=== PATIENT | male | born 1995 | race Caucasian/White ===

== ENCOUNTER → 2018-12-26 | Outpatient (CLI) | payer MEDICAID ==
--- NOTE | 2018-12-26 12:22 | Diagnostic Imaging Report ---
INDICATION: Injury to the right shoulder lifting weights. TIME OF EXAMINATION: 12:06 PM. TECHNIQUE: Two views of the right shoulder were obtained. FINDINGS: The glenohumeral and acromioclavicular alignment is normal. The acromiohumeral space is normal. No fracture or dislocation is seen. IMPRESSION: No acute bony abnormality is detected. Dictated by: Dictated on workstation # [id number]
== END ==
LOC: RAD FS 11:56
PROVIDERS: ATTEND Nurse Practitioner
DX: S49.91XA Unspecified injury of right shoulder and upper arm, initial encounter (principal); X50.0XXA Overexertion from strenuous movement or load, initial encounter
CPT/HCPCS: 73030

== ENCOUNTER → 2019-01-31 | Outpatient (CLI) | payer MEDICAID ==
--- NOTE | 2019-01-31 10:53 | Diagnostic Imaging Report ---
PROCEDURE: MRI right joint upper extremity without contrast. TECHNIQUE: Multiplanar, multisequence non contrast-enhanced MRI of the right upper extremity was accomplished. INDICATION: Injury to the right shoulder while weight lifting. COMPARISON: Radiograph from 12/26/2018 FINDINGS: No acute fracture or dislocation is seen in the right shoulder. Alignment is normal. No joint effusion is seen. No tear is seen in the right rotator cuff. The long head of the biceps tendon appears normal in course and signal. The glenoid labrum is suboptimally evaluated in the absence of intra-articular contrast but no discrete tear or paralabral cyst is seen. The acromion has a curved undersurface without hooking. The coracoclavicular and coracoacromial ligaments appear intact. There is no muscular atrophy. No soft tissue masses or fluid collections are seen. IMPRESSION: 1. No acute abnormality is seen in the right shoulder. Dictated by: Dictated on workstation # [id number]
== END ==
LOC: RAD 09:31
PROVIDERS: ATTEND Nurse Practitioner
DX: S49.92XA Unspecified injury of left shoulder and upper arm, initial encounter (principal); X50.0XXA Overexertion from strenuous movement or load, initial encounter
CPT/HCPCS: 73221

== ENCOUNTER → 2021-07-18 | Outpatient (CLI) | payer MEDICAID ==
--- NOTE | 2021-07-18 10:58 | Diagnostic Imaging Report ---
PROCEDURE: MRI lumbar spine. TECHNIQUE: Multiplanar, multisequence MRI of the lumbar spine was performed without contrast. INDICATION: Low back pain. COMPARISON: No prior studies are available for comparison. FINDINGS: Curvature and alignment is within normal limits. Vertebral body heights and marrow signal are unremarkable. No compression fracture or geographic marrow lesion is seen. There is some loss of height and signal intensity to the L5-S1 intervertebral disc compatible with degenerative disc disease. The conus is unremarkable at the T12-L1 level. T12-L1: Central canal and neural foramina are widely patent. L1-L2: Central canal and neural foramina are widely patent. L2-L3: Central canal and neural foramina are widely patent. L3-L4: Minimal annular bulging is noted flattening the ventral thecal sac. Central canal remains widely patent. Neural foramina are patent. L4-L5: There is some flattening of the ventral thecal sac due to annular bulging, but central canal is patent. There is narrowing of bilateral lateral recesses. No significant neural foraminal narrowing is seen. L5-S1: Annular bulging is noted. There is some linear T2 signal in the midline posterior annulus consistent with an annular tear. No focal disc protrusion is seen. Central canal is patent. There is some narrowing of the lateral recesses bilaterally. No significant neural foraminal narrowing is detected. Paraspinous tissues are unremarkable. IMPRESSION: Lower lumbar annular bulging with mild lateral recess narrowing described level by level above. No central canal stenosis or neural foraminal stenosis is detected. Dictated by: Dictated on workstation # [id number]
== END ==
LOC: RAD 08:05
PROVIDERS: ATTEND Nurse Practitioner Family
DX: M51.26 Other intervertebral disc displacement, lumbar region (principal); M51.27 Other intervertebral disc displacement, lumbosacral region; M48.07 Spinal stenosis, lumbosacral region
CPT/HCPCS: 72148

== ENCOUNTER 2021-12-05 11:24 | Emergency (ER) | payer MEDICAID ==
[~2021-12-05] VITALS: Ht 185 cm; Wt 82.0 kg
[2021-12-05 11:37] VITALS: BP 108/76
--- NOTE | 2021-12-05 12:46 | Diagnostic Imaging Report ---
HISTORY: Crush injury of the left wrist with left wrist pain TECHNIQUE: 3 views of the left wrist COMPARISON: None FINDINGS: No acute fracture or dislocation is seen in the left wrist. Alignment is normal and joint spaces are preserved. No cortical erosions are seen. IMPRESSION: 1. No acute osseous abnormality is seen in the left wrist. Dictated by: Dictated on workstation # [id number]
--- NOTE | 2021-12-05 12:46 | Diagnostic Imaging Report ---
HISTORY: Crush injury of the left hand, with left hand pain. TECHNIQUE: Three views of the left hand. COMPARISON: None. FINDINGS: No acute fracture or dislocation is seen in the left hand. Alignment appears normal, and joint spaces are preserved. No cortical erosions are seen. IMPRESSION: 1. No acute osseous abnormality is seen in the left hand. Dictated by: Dictated on workstation # [id number]
--- NOTE | 2021-12-05 12:52 | ED Upper Extremity ---
General Chief Complaint: Upper Extremity Stated Complaint: LT HAND INJ Nursing Triage Note: Patient has ambulated to ER 2 with cc of left hand pain. He reports the he dropped a rail road tie on his hand on Sunday. He went to urgent care on Sunday and was given a splint to wear but he is not liking the splint and not wearing it. He has taken ibuprofen for his pain. He reports that he continues to have pain in hand and came to ER for evaluation. Source: patient Exam Limitations: no limitations History of Present Illness Date Seen by Provider: Dec 05, 2021 Time Seen by Provider: 11:32 Initial Comments This 26-year-old gentleman presents to the emergency room with pain in the left hand and wrist since December 03 when it was smashed with a railroad tie while working on a project. He presented to an urgent care and a splint was placed. No x-rays were obtained. He reports pain has not improved, so he would like it reevaluated today. No other injuries occurred. Allergies and Home Medications Allergies Coded Allergies: No Known Drug Allergies (Unverified , 12/05/21) Patient Home Medication List Home Medication List Reviewed: Yes Review of Systems Constitutional: no symptoms reported EENTM: no symptoms reported Respiratory: no symptoms reported Cardiovascular: no symptoms reported Gastrointestinal: no symptoms reported Genitourinary: no symptoms reported Musculoskeletal: see HPI Skin: no symptoms reported Psychiatric/Neurological: No Symptoms Reported Past Whbfetm-Kxrtud-Ijdsqf Hx Patient Social History Tobacco Use?: No Use of E-Cig and/or Vaping dev: No Alcohol Use?: No Past Medical History Surgeries: No Respiratory: No Cardiac: No Neurological: No Genitourinary: No Gastrointestinal: No Musculoskeletal: No Endocrine: No HEENT: No Cancer: No Psychosocial: No Physical Exam Vital Signs Vital Signs - First Documented 12/05/21 11:37 Temp 36.5 Pulse 83 Resp 16 B/P (MAP) 108/76 (87) Pulse Ox 97 O2 Delivery Room Air Capillary Refill : Height, Weight, BMI Height: '" Weight: lbs. oz. kg; 23.00 BMI Method: General Appearance: WD/WN, no apparent distress HEENT: normal ENT inspection Cardiovascular: regular rate, rhythm, no edema, no murmur Respiratory: lungs clear, normal breath sounds, no respiratory distress Elbow/Forearm: normal inspection, non-tender, no evidence of injury, normal ROM, Left Wrist: Yes normal inspection, Yes normal ROM (Mild pain in the wrist with range of motion), Yes bone tenderness (Mild tenderness in the wrist with palpation) Hand: Left (Decreased range of motion of the third fourth and fifth fingers. Tenderness on the distal hand, particularly over the third fourth and fifth metacarpals. Pain with range of motion and palpation. Sensation and capillary refill intact.) Neurologic/Tendon: normal sensation, normal motor functions, responds to pain Neurologic/Psychiatric: no motor/sensory deficits, alert, normal mood/affect, oriented x 3 Skin: warm/dry Progress/Results/Core Measures Results/Orders My Orders Orders - MARVIN DAVIES MD Hand 3 View Left (12/05/21 11:35) Wrist 3 View Left (12/05/21 11:35) Vital Signs/I&O 12/05/21 11:37 Temp 36.5 Pulse 83 Resp 16 B/P (MAP) 108/76 (87) Pulse Ox 97 O2 Delivery Room Air Blood Pressure Mean: 87 Progress Progress Note : Progress Note X-rays revealed no fractures or dislocations. Patient does not like the "stick splint" that he received from urgent care. He would like to try one of our splints. See discharge instructions for further discussion. Diagnostic Imaging Diagonstic Imaging: Xray Plain Films/CT/US/NM/MRI: hand (And wrist) Comments X-rays of the left hand and wrist reviewed by me and reports reviewed. See reports below: NAME: SESAR HOLT [facility] REC#: [id number] PT STATUS: REG ER : 1995 PHYSICIAN: MARVIN DAVIES MD ADMIT DATE: 12/05/21/ER FS Draft Date of Exam:12/05/21 HAND 3 VIEW LEFT HISTORY: Crush injury of the left hand, with left hand pain. TECHNIQUE: Three views of the left hand. COMPARISON: None. FINDINGS: No acute fracture or dislocation is seen in the left hand. Alignment appears normal, and joint spaces are preserved. No cortical erosions are seen. IMPRESSION: 1. No acute osseous abnormality is seen in the left hand. Dictated on workstation # [id number] Dict: 12/05/21 1240 Trans: 12/05/21 1245 [id number] Interpreted by: NERY CARMICHAEL MD NAME: SESAR HOLT MED REC#: [id number] PT STATUS: REG ER : 1995 PHYSICIAN: MARVIN DAVIES MD ADMIT DATE: 12/05/21/ER FS Draft Date of Exam:12/05/21 WRIST 3 VIEW LEFT HISTORY: Crush injury of the left wrist with left wrist pain TECHNIQUE: 3 views of the left wrist COMPARISON: None FINDINGS: No acute fracture or dislocation is seen in the left wrist. Alignment is normal and joint spaces are preserved. No cortical erosions are seen. IMPRESSION: 1. No acute osseous abnormality is seen in the left wrist. Dictated on workstation # [id number] Dict: 12/05/21 1239 Trans: 12/05/21 1245 [id number] Interpreted by: NERY CARMICHAEL MD Departure Impression Primary Impression: Contusion of left hand Qualified Codes: S60.222A - Contusion of left hand, initial encounter Additional Impression: Contusion of left wrist Qualified Codes: S60.212A - Contusion of left wrist, initial encounter Disposition: 01 HOME, SELF-CARE Condition: Stable Departure-Patient Inst. Decision time for Depature: 12:56 Referrals: NO,LOCAL PHYSICIAN (PCP/Family) Primary Care Physician Patient Instructions: Contusion (DC) Add. Discharge Instructions: You may take ibuprofen up to 600 mg every 6 hours as needed for pain. Add Tylenol (acetaminophen) up to 1000 mg every 6 hours as needed for additional pain relief. You may additionally ice in 20-minute intervals and elevate to help reduce pain and swelling. Use the splint as needed for comfort. Avoid prolonged periods of time without any range of motion as this may make your hand stiffer. Gradually increase level of activity as pain allows. Follow-up with your primary care provider as needed, or return to the ER if you have worsening symptoms. All discharge instructions reviewed with patient and/or family. Voiced understanding. MARVIN DAVIES MD Dec 05, 2021 12:52
== END 2021-12-05 13:05 | disposition home or self-care (01) ==
LOC: EDUNIT# 11:24 → ER FS 11:26
DX: S60.212A Contusion of left wrist, initial encounter (principal); Z28.310 Unvaccinated for COVID-19; W23.1XXA Caught, crushed, jammed, or pinched between stationary objects, initial encounter; Y92.85 Railroad track as the place of occurrence of the external cause; Y99.0 Civilian activity done for income or pay
CPT/HCPCS: 73110; 73130

== ENCOUNTER 2022-02-10 18:41 | Emergency (ER) | payer MEDICAID ==
[~2022-02-10] VITALS: Ht 185.4 cm; Wt 84.0 kg
[2022-02-10] MEDS ORDERED: TETANUS,DIPTH,PERTUSS P/F (BOOSTRIX) 0.5 ML VIAL IM ONE (19:00)
--- NOTE | 2022-02-10 19:00 | ED Lower Extremity ---
General Chief Complaint: Laceration Stated Complaint: R FOOT LAC Source: patient, family Exam Limitations: no limitations History of Present Illness Date Seen by Provider: Feb 10, 2022 Time Seen by Provider: 18:43 Initial Comments 26-year-old male with no pertinent past medical history coming in after he was walking barefoot and stepped on a piece of glass cutting the right lower part of his foot. Came here shortly afterwards. His last tetanus he believes was somewhere around 10 years ago, but is unsure. Having constant, mild, sharp pain to his right foot which is worse when walking on it, and better with rest. Otherwise denying any other acute complaints. Allergies and Home Medications Allergies Coded Allergies: No Known Drug Allergies (Unverified , 12/05/21) Patient Home Medication List Home Medication List Reviewed: Yes Review of Systems Constitutional: No fever EENTM: no symptoms reported Respiratory: no symptoms reported Cardiovascular: no symptoms reported Gastrointestinal: no symptoms reported Genitourinary: no symptoms reported Musculoskeletal: no symptoms reported Skin: see HPI Psychiatric/Neurological: No Symptoms Reported All Other Systems Reviewed Negative Unless Noted: Yes Past Faeltoo-Yyqhki-Spcidk Hx Patient Social History Tobacco Use?: No Past Medical History Surgeries: No Respiratory: No Cardiac: No Neurological: No Genitourinary: No Gastrointestinal: No Musculoskeletal: No Endocrine: No HEENT: No Cancer: No Psychosocial: No Physical Exam Vital Signs Capillary Refill : Height, Weight, BMI Height: '" Weight: lbs. oz. kg; 23.00 BMI Method: General Appearance: WD/WN, no apparent distress HEENT: PERRL/EOMI, normal ENT inspection, pharynx normal Neck: non-tender, full range of motion, supple, normal inspection Cardiovascular: regular rate, rhythm, no edema, no murmur Respiratory: chest non-tender, lungs clear, normal breath sounds, no respiratory distress, no accessory muscle use Gastrointestinal: normal bowel sounds, non tender, soft; No guarding Back: normal inspection Hips: bilateral hip normal inspection Legs: bilateral leg normal inspection Knees: bilateral knee normal inspection Ankles: bilateral ankle normal inspection Feet: right foot other (Small, superficial, and half centimeter laceration that is barely through the callus on his foot, more consistent with a large abrasion than a true laceration, hemostatic, no foreign body) Neurologic/Tendon: normal sensation, normal motor functions, normal tendon functions Neurologic/Psychiatric: no motor/sensory deficits, alert, normal mood/affect Skin: normal color, warm/dry Lymphatic: no adenopathy Progress/Results/Core Measures Progress Progress Note : Progress Note 26-year-old male presenting after stepping on glass. ABCs were intact and vitals were stable on presentation. Physical exam were consistent with an abras ion to the right lower foot. Tetanus updated and the wound was cleaned. He was then discharged home in stable condition with strict return precautions Departure Impression Primary Impression: Foot abrasion Qualified Codes: S90.811A - Abrasion, right foot, initial encounter Disposition: HOME, SELF-CARE Condition: Stable Departure-Patient Inst. Decision time for Depature: 19:00 Referrals: MANISH LYLES APRN (PCP/Family) Primary Care Physician Patient Instructions: Abrasions ED Add. Discharge Instructions: Fortunately it is not deep enough to need stitches. Go home and soak it and get it very clean tonight. Afterwards get it clean every day, wear clean socks daily, wear shoes daily at least for the next week. Take ibuprofen or Tylenol as needed for pain. It might have some small amount of bleeding or oozing which should stop by tomorrow. Work/School Note: Family Work Note, Patient Received Medical Care In the Emergency Department On: Feb 10, 2022 Patient Will Be Able to Return to Work/School On: Feb 11, 2022 Work Release Form Date Seen in the Emergency Department: Feb 10, 2022 Return to Work: Feb 11, 2022 Restrictions: No Restrictions CARA MITCHELL MD Feb 10, 2022 19:00
[2022-02-10 19:06] VITALS: BP 126/73
== END 2022-02-10 19:06 | disposition home or self-care (01) ==
LOC: EDUNIT# 18:41 → ER FS 18:42
DX: S90.811A Abrasion, right foot, initial encounter (principal); Z28.310 Unvaccinated for COVID-19; Z23 Encounter for immunization; W25.XXXA Contact with sharp glass, initial encounter; Y93.01 Activity, walking, marching and hiking
CPT/HCPCS: 90715; 99284

== ENCOUNTER → 2022-04-19 | Outpatient (CLI) | payer MEDICAID ==
[~2022-04-19] MED LIST: HOLD METFORMIN - RECEIVED CONTRAST 20 ML VIAL IV SCH; IOHEXOL 350 MG/ML 100 ML (OMNIPAQUE 350) VIAL IV ONE; NS 100 ML (IVPB) BAG IV ONE
--- NOTE | 2022-04-19 14:54 | Diagnostic Imaging Report ---
PROCEDURE: CT angiography of the head and CT angiography of the neck with and without contrast. TECHNIQUE: Contiguous noncontrast images were obtained from the skull base through the vertex. After intravenous contrast administration, helical CT angiography of the neck was performed. Source data was reformatted into 3D MIP projections. Delayed post contrast acquisition was also obtained. Auto Exposure Controls were utilized during the CT exam to meet ALARA standards for radiation dose reduction. INDICATION: Family history of brain aneurysms. Patient also complains of chronic migraine headaches. No prior studies are available for comparison. FINDINGS: Precontrast images through the brain demonstrate the ventricles and sulci to be within normal limits. No sulcal effacement or midline shift is identified. No acute intra-axial or extra-axial hemorrhage is detected. Cisterns are patent. Visualized paranasal sinuses are clear. Delayed postcontrast imaging through the brain is without evidence of an abnormal enhancing lesion. CT ANGIOGRAM NECK: There is a three-vessel branching pattern to the aortic arch. The right and left common carotid arteries are widely patent. The carotid bifurcations are unremarkable. The right and left internal carotid arteries are unremarkable. The vertebral arteries appear to be codominant and widely patent. Right and left PICA appear widely patent. CT ANGIOGRAM HEAD: The basilar artery is widely patent. The right and left posterior cerebral and superior cerebellar arteries are widely patent. No basilar tip aneurysm is detected. Carotid siphons are unremarkable. Right and left M1 and M2 middle cerebral artery branches appear widely patent. No definite aneurysms are seen. The right and left anterior cerebral arteries appear to be widely patent. No anterior communicating artery aneurysm is detected. IMPRESSION: Unremarkable CT angiogram of the head and neck. No thromboemboli or large vessel occlusion is seen. No intracranial aneurysm is detected. Dictated by: Dictated on workstation # [id number]
== END ==
LOC: RAD 12:51
PROVIDERS: ATTEND Nurse Practitioner
DX: R90.89 Other abnormal findings on diagnostic imaging of central nervous system (principal); G43.709 Chronic migraine without aura, not intractable, without status migrainosus; Z82.0 Family history of epilepsy and other diseases of the nervous system
CPT/HCPCS: 70496; 70498

== ENCOUNTER 2022-08-02 18:52 | Emergency (ER) | payer MEDICAID ==
[~2022-08-02] VITALS: Ht 182 cm; Wt 74.5 kg
[2022-08-02 18:58] VITALS: BP 100/68
[2022-08-02] MEDS ORDERED: CYCLOBENZAPRINE 10 MG (FLEXERIL) TAB PO STA (19:03)
[2022-08-02] MEDS ORDERED: CYCL10TA25 PO (19:07)
[2022-08-02] MEDS ORDERED: IBUP-1780 PO (19:07)
--- NOTE | 2022-08-02 19:08 | ED Back Pain ---
General Chief Complaint: Back Problems Stated Complaint: BACK PAIN Nursing Triage Note: Patient complains of lower back pain for the last week - he reports that he picked up a metal pipe and since that time he has had pain. He took ibuprofen 2 days ago for his pain. Source of Information: Patient, Family Exam Limitations: No Limitations History of Present Illness Date Seen by Provider: August 02, 2022 Time Seen by Provider: 18:53 Initial Comments 27-year-old male with no pertinent past medical history coming in due to low back pain. He was picking up some pipe about a week ago, and felt a strain in his right lower back. Its been hurting ever since. He last took ibuprofen a couple days ago which helped. Denies any weakness, numbness, bowel or bladder issue, fever, or any other concerns. Allergies and Home Medications Allergies Coded Allergies: No Known Drug Allergies (Unverified , 12/05/21) Patient Home Medication List Home Medication List Reviewed: Yes Review of Systems Constitutional: No fever EENTM: no symptoms reported Respiratory: no symptoms reported Cardiovascular: no symptoms reported Gastrointestinal: no symptoms reported Genitourinary: no symptoms reported Musculoskeletal: see HPI Psychiatric/Neurological: No Symptoms Reported Past Bqnwnpb-Swfpae-Lihzue Hx Patient Social History Tobacco Use?: No Use of E-Cig and/or Vaping dev: No Substance use?: No Alcohol Use?: No Pt feels they are or have been: Unable to obtain Immunizations Up To Date First/Initial COVID19 Vaccinat: unvaccinated Second COVID19 Vaccination Jose Luis: unvaccinated Third COVID19 Vaccination Date: unvaccinated Past Medical History Surgery/Hospitalization HX: Disabled: Asperger's (functional autism) Surgeries: No Respiratory: No Cardiac: No Neurological: No Genitourinary: No Gastrointestinal: No Musculoskeletal: No Endocrine: No HEENT: No Cancer: No Psychosocial: No Physical Exam Vital Signs Vital Signs - First Documented 08/02/22 18:58 Temp 37.0 Pulse 88 Resp 16 B/P (MAP) 100/68 (79) O2 Delivery Room Air Capillary Refill : Height, Weight, BMI Height: '" Weight: lbs. oz. kg; 22.00 BMI Method: General Appearance: No Apparent Distress, WD/WN HEENT: PERRL/EOMI, Normal ENT Inspection, Pharynx Normal Neck: Full Range of Motion, Normal Inspection, Non Tender, Supple Cardiovascular: Regular Rate, Rhythm, No Edema, Normal Peripheral Pulses Respiratory: Chest Non Tender, Lungs Clear, Normal Breath Sounds, No Accessory Muscle Use, No Respiratory Distress Gastrointestinal: Normal Bowel Sounds, Non Tender, Soft; No Distended, No Guarding Back: Normal Inspection, No CVA Tenderness, No Vertebral Tenderness, Other (P araspinal tenderness on the right lower back) Extremity: Normal Capillary Refill, Normal Inspection, Normal Range of Motion, Non Tender Neurologic/Psychiatric: Alert, No Motor/Sensory Deficits, Normal Mood/Affect Skin: Normal Color, Warm/Dry Progress/Results/Core Measures Results/Orders My Orders Orders - CARA MITCHELL MD Acetaminophen Tablet (Tylenol Tablet) (08/02/22 19:15) Ibuprofen Tablet (Motrin Tablet) (08/02/22 19:15) Cyclobenzaprine Tablet (Flexeril Tablet) (08/02/22 19:03) Vital Signs/I&O 08/02/22 18:58 Temp 37.0 Pulse 88 Resp 16 B/P (MAP) 100/68 (79) O2 Delivery Room Air Blood Pressure Mean: 79 Progress Progress Note : Progress Note 27-year-old male with above history coming in due to low back pain after picking something up a week ago. ABCs were intact and vitals were stable on presentation. The patient walked in without any difficulty and did not appear to be in any pain. He has no red flags on exam. Given the lack of trauma, imaging considered but not ordered. He was given oral medications here for pain control and will be sent a prescription home. I believe he stable for discharge with outpatient follow-up. He was sent home with strict return precautions Departure Impression Primary Impression: Low back strain Qualified Codes: S39.012A - Strain of muscle, fascia and tendon of lower back, initial encounter Disposition: 01 HOME, SELF-CARE Condition: Stable Departure-Patient Inst. Decision time for Depature: 19:12 Referrals: MANISH LYLES APRN (PCP/Family) Primary Care Physician Patient Instructions: Low Back Pain ED Add. Discharge Instructions: We are not seeing any evidence of significant injury from picking up the pipe. Please follow-up with a spine doctor of your choosing if you are not improving within 2 weeks. Prescription strength ibuprofen as well as a muscle relaxer were sent to your pharmacy. You can also try a heating pad. Do not drive or operate heavy machinery if you take a muscle relaxer. Scripts Cyclobenzaprine HCl (Cyclobenzaprine HCl) 10 Mg Tablet 10 MG PO Q8H PRN for SPASMS for 5 Days, #15 TAB 0 Refills Prov: CARA MITCHELL MD 08/02/22 Ibuprofen (Ibuprofen) 800 Mg Tablet 800 MG PO Q8H PRN for PAIN for 7 Days, #21 TAB 0 Refills Prov: CARA MITCHELL MD 08/02/22 Work/School Note: Family Work Note, Patient Received Medical Care In the Emergency Department On: August 02, 2022 Patient Will Be Able to Return to Work/School On: August 03, 2022 Work Release Form Date Seen in the Emergency Department: August 02, 2022 Return to Work: August 03, 2022 Restrictions: No Restrictions CARA MITCHELL MD August 02, 2022 19:08
[2022-08-02] MEDS ORDERED: ACETAMINOPHEN 500 MG TAB (TYLENOL) PO ONE (19:15)
[2022-08-02] MEDS ORDERED: IBUPROFEN 600 MG (MOTRIN) TAB PO ONE (19:15)
== END 2022-08-02 19:17 | disposition home or self-care (01) ==
LOC: EDUNIT# 18:52 → ER FS 18:53
DX: S39.012A Strain of muscle, fascia and tendon of lower back, initial encounter (principal); Z28.310 Unvaccinated for COVID-19; X50.1XXA Overexertion from prolonged static or awkward postures, initial encounter
CPT/HCPCS: 99283

== ENCOUNTER 2022-09-11 11:25 | Emergency (ER) | payer MEDICAID ==
[~2022-09-11] VITALS: Ht 185.5 cm; Wt 83.9 kg
[~2022-09-11 11:25] MED LIST changes: +CYCL10TA25 PO; -HOLD METFORMIN - RECEIVED CONTRAST 20 ML VIAL IV SCH; +IBUP-1780 PO; -IOHEXOL 350 MG/ML 100 ML (OMNIPAQUE 350) VIAL IV ONE; -NS 100 ML (IVPB) BAG IV ONE
[2022-09-11] MEDS ORDERED: IBUPROFEN 800 MG (MOTRIN) TAB PO ONE (12:15)
--- NOTE | 2022-09-11 12:37 | Diagnostic Imaging Report ---
FOOT 3 VIEW LEFT INDICATION: Left foot pain COMPARISON: None available. TECHNIQUE: Three non-weightbearing views of foot were obtained. FINDINGS: No fracture or traumatic malalignment. No evidence of metatarsal stress fracture. There are a few punctate hyperdensities on the skin in the 1st metatarsal webspace. IMPRESSION: 1. No acute fracture or traumatic malalignment. Dictated by: Dictated on workstation # [id number]
[2022-09-11] MEDS ORDERED: IBUP-1780 PO (12:49)
--- NOTE | 2022-09-11 12:49 | ED Lower Extremity ---
General Chief Complaint: Lower Extremity Stated Complaint: LT FOOT PAIN Nursing Triage Note: PT AMBULATE TO ROOM FS02 WITHOUT DIFFICULTY WITH C/O LEFT FOOT PAIN STARTING YESTERDAY. PT REPORTS HE A WAS WALKING HIS DOG AND HIS LEFT FOOT STARTED HURTING. PT REPORTS HAVING A BLISTER BETWEEN GREAT AND SECOND TOE ON LEFT FOOT. PT REPORTS RIGHT HIP PAIN X2 WEEKS THAT HE "WOULD LIKE THE DOCTOR TO LOOK AT, YA KNOW, SINCE I'M HERE." Source: patient, RN notes reviewed History of Present Illness Date Seen by Provider: Sep 11, 2022 Time Seen by Provider: 11:56 Initial Comments 27-year-old male patient with history of autism, ADHD, asparagus on disability presented POV with complaining of left foot pain. Patient stated he was walking his dog yesterday and twisted his left foot and complaining of pain over 10. Patient denies other injuries and stated he did not take any pain medication. Patient also stated he had a blister between first and second toe that was popped off and is concerned for infection. Patient also complaining of right hip pain intermittently for 2 weeks without injury. Patient is a poor historian. Allergies and Home Medications Allergies Coded Allergies: No Known Drug Allergies (Unverified , 12/05/21) Patient Home Medication List Home Medication List Reviewed: Yes Cyclobenzaprine HCl (Cyclobenzaprine HCl) 10 Mg Tablet, 10 MG PO Q8H PRN for SPASMS Prescribed by: CARA MITCHELL on 08/02/221906 Ibuprofen (Ibuprofen) 800 Mg Tablet, 800 MG PO Q8H PRN for PAIN Prescribed by: CARA MITCHELL on 08/02/221906 Ibuprofen (Ibuprofen) 800 Mg Tablet, 800 MG PO Q8H PRN for PAIN Prescribed by: Valentina fournier on 09/11/22 1249 Review of Systems Constitutional: no symptoms reported EENTM: no symptoms reported Respiratory: no symptoms reported Cardiovascular: no symptoms reported Gastrointestinal: no symptoms reported Genitourinary: no symptoms reported Musculoskeletal: see HPI Skin: see HPI Psychiatric/Neurological: See HPI All Other Systems Reviewed Negative Unless Noted: Yes Past Kacgrdm-Wgttif-Jvknqw Hx Patient Social History Tobacco Use?: No Smoking Status: Never a Smoker Smokeless Tobacco Frequency: Never a User Use of E-Cig and/or Vaping dev: No Use of E-Cig and/or Vaping Tee: Never a User Substance use?: No Alcohol Use?: Yes Alcohol Frequency: Rarely Immunizations Up To Date First/Initial COVID19 Vaccinat: unvaccinated Second COVID19 Vaccination Jose Luis: unvaccinated Third COVID19 Vaccination Date: unvaccinated Past Medical History Surgery/Hospitalization HX: Disabled: Asperger's (functional autism) Surgeries: No Respiratory: No Cardiac: No Neurological: No Genitourinary: No Gastrointestinal: No Musculoskeletal: No Endocrine: No HEENT: No Cancer: No Psychosocial: No Physical Exam Vital Signs Vital Signs - First Documented 09/11/22 11:30 Temp 36.2 Pulse 70 Resp 18 B/P (MAP) 95/69 (78) O2 Delivery Room Air Capillary Refill : Less Than 3 Seconds Height, Weight, BMI Height: '" Weight: lbs. oz. kg; 24.00 BMI Method: General Appearance: no apparent distress, other (Unkempt) HEENT: PERRL/EOMI Neck: non-tender Cardiovascular: regular rate, rhythm, no edema Respiratory: lungs clear, normal breath sounds, no respiratory distress Back: normal inspection Hips: bilateral hip non-tender, bilateral hip normal inspection, bilateral hip normal range of motion Legs: bilateral leg non-tender, bilateral leg normal inspection, bilateral leg normal range of motion Knees: bilateral knee non-tender, bilateral knee normal inspection Ankles: bilateral ankle non-tender, bilateral ankle normal inspection, bilateral ankle normal range of motion Feet: bilateral foot non-tender, bilateral foot normal inspection, bilateral foot normal range of motion Neurologic/Tendon: normal sensation, normal motor functions, normal tendon functions Skin: normal color, warm/dry, other (With dirty feet with foul-smelling, no blisters between toes was found.) Progress/Results/Core Measures Results/Orders My Orders Orders - VALENTINA FOURNIER MD Ibuprofen Tablet (Motrin Tablet) (09/11/22 12:15) Foot 3 View Left (09/11/22 12:03) Medications Given in ED Current Medications Medications Dose Ordered Sig/Otilia Route Start Time Stop Time Status Last Admin Dose Admin Ibuprofen 800 mg ONCE ONCE PO 09/11/22 12:15 09/11/22 12:16 DC 09/11/22 12:11 800 MG Vital Signs/I&O 09/11/22 11:30 Temp 36.2 Pulse 70 Resp 18 B/P (MAP) 95/69 (78) O2 Delivery Room Air Blood Pressure Mean: 78 Progress Progress Note : Progress Note Patient with several psychiatric problems complaining of left foot pain since yesterday after injury. Patient had very foul-smelling and dirty foot without signs of injury with negative x-ray. Patient also concern for right hip pain without signs of injury or deformity with unremarkable physical exam of hip. Patient treated with ibuprofen in ER and prescription for ibuprofen was given and advised to clean his foot and take prescribed ibuprofen and follow-up with primary care physician for chronic pain of right hip. Diagnostic Imaging Diagonstic Imaging: Xray Plain Films/CT/US/NM/MRI: other (Left foot) CT Results/Progress Notes X-ray of left foot interpreted by me and did not show acute finding. X-ray of left foot interpreted by radiologist and reviewed by me and did not show acute finding: [facility], [place] NAME: SESAR HOLT MED REC#: [id number] PT STATUS: REG ER : 1995 PHYSICIAN: VALENTINA FOURNIER MD ADMIT DATE: 09/11/22/ER FS Signed Date of Exam:09/11/22 FOOT 3 VIEW LEFT FOOT 3 VIEW LEFT INDICATION: Left foot pain COMPARISON: None available. TECHNIQUE: Three non-weightbearing views of foot were obtained. FINDINGS: No fracture or traumatic malalignment. No evidence of metatarsal stress fracture. There are a few punctate hyperdensities on the skin in the 1st metatarsal webspace. IMPRESSION: 1. No acute fracture or traumatic malalignment. Dictated by: Dictated on workstation # [id number] Dict: 09/11/22 1235 Trans: 09/11/22 1236 [facility] [id number] Interpreted by: JOSE ELIAS SMITH MD Electronically signed by: JOSE ELIAS SMITH MD 09/11/22 1236 Departure Impression Primary Impression: Injury of left foot Qualified Codes: S99.922A - Unspecified injury of left foot, initial encounter Disposition: 01 HOME, SELF-CARE Condition: Stable Departure-Patient Inst. Decision time for Depature: 12:47 Referrals: MANISH LYLES APRN (PCP) Primary Care Physician [facility] (Family) Primary Care Physician Patient Instructions: Contusion (DC) Add. Discharge Instructions: Keep your foot clean Apply ice on your foot Follow-up with your primary care physician for right hip pain Return to ER as needed All discharge instructions reviewed with patient and/or family. Voiced understanding. Scripts Ibuprofen (Ibuprofen) 800 Mg Tablet 800 MG PO Q8H PRN for PAIN, #30 TAB 0 Refills Prov: VALENTINA FOURNIER MD 09/11/22 VALENTINA FOURNIER MD Sep 11, 2022 12:49
[2022-09-11 12:52] VITALS: BP 124/72
== END 2022-09-11 12:52 | disposition home or self-care (01) ==
LOC: EDUNIT# 11:25 → ER FS 11:27
DX: S99.922A Unspecified injury of left foot, initial encounter (principal); M25.551 Pain in right hip; Z28.310 Unvaccinated for COVID-19; X50.1XXA Overexertion from prolonged static or awkward postures, initial encounter; Y93.K1 Activity, walking an animal
CPT/HCPCS: 73630; 99281

== ENCOUNTER 2022-10-02 16:58 | Emergency (ER) | payer MEDICAID ==
[2022-10-02] MEDS ORDERED: CEPH500C PO (17:38)
--- NOTE | 2022-10-02 17:38 | ED Lower Extremity ---
General Chief Complaint: Laceration Stated Complaint: R FOOT LAC Source: patient, family History of Present Illness Date Seen by Provider: Oct 02, 2022 Time Seen by Provider: 17:21 Initial Comments 27-year-old male with a history of autism and asperger's syndrome presents with complaints of pain and injury to his right foot. He states that on Sunday he medina d slipped on some rocks and caught his heel. He had a piece of tissue that was torn off. He also hit his foot on a umbrella stand. He denies any fever or chills and has had no purulent drainage from the wound. Onset: other (Sunday, September 29) Pain/Injury Location: right heel Method of Injury: other (Slipped while standing on some rocks) Modifying Factors: Worse With Movement Allergies and Home Medications Allergies Coded Allergies: No Known Drug Allergies (Unverified , 12/05/21) Patient Home Medication List Home Medication List Reviewed: Yes Cephalexin (Cephalexin) 500 Mg Capsule, 500 MG PO TID Prescribed by: LUCY PATEL on 10/02/22 1738 Cyclobenzaprine HCl (Cyclobenzaprine HCl) 10 Mg Tablet, 10 MG PO Q8H PRN for SPASMS Prescribed by: CARA MITCHELL on 08/02/22 190 Ibuprofen (Ibuprofen) 800 Mg Tablet, 800 MG PO Q8H PRN for PAIN Prescribed by: CARA MITCHELL on 08/02/221906 Ibuprofen (Ibuprofen) 800 Mg Tablet, 800 MG PO Q8H PRN for PAIN Prescribed by: Valentina churchill on 09/11/22 1249 Review of Systems Constitutional: No chills, No fever EENTM: no symptoms reported Respiratory: no symptoms reported Cardiovascular: no symptoms reported Gastrointestinal: no symptoms reported Genitourinary: no symptoms reported Musculoskeletal: see HPI Skin: see HPI Psychiatric/Neurological: See HPI Past Akogvlq-Odcptb-Fynuuc Hx Patient Social History Tobacco Use?: No Use of E-Cig and/or Vaping dev: No Substance use?: No Immunizations Up To Date First/Initial COVID19 Vaccinat: unvaccinated Second COVID19 Vaccination Jose Luis: unvaccinated Third COVID19 Vaccination Date: unvaccinated Past Medical History Surgery/Hospitalization HX: Disabled: Asperger's (functional autism) Surgeries: No Respiratory: No Cardiac: No Neurological: No Genitourinary: No Gastrointestinal: No Musculoskeletal: No Endocrine: No HEENT: No Cancer: No Psychosocial: No Physical Exam Vital Signs Vital Signs - First Documented 10/02/22 17:25 Temp 35.9 Pulse 68 Resp 18 B/P (MAP) 102/66 (78) Pulse Ox 99 O2 Delivery Room Air Capillary Refill : Height, Weight, BMI Height: '" Weight: lbs. oz. kg; 24.00 BMI Method: General Appearance: WD/WN, no apparent distress Cardiovascular: normal peripheral pulses Feet: right foot soft tissue tenderness (around area of skin avulsion on his heel plantar surface. No drainage. Mild erythema around the avulsed skin.) Neurologic/Tendon: normal sensation, normal motor functions, normal tendon functions Neurologic/Psychiatric: alert Skin: warm/dry Progress/Results/Core Measures Results/Orders Vital Signs/I&O 10/02/22 10/02/22 17:25 17:49 Temp 35.9 35.9 Pulse 68 68 Resp 18 18 B/P (MAP) 102/66 (78) 102/66 Pulse Ox 99 99 O2 Delivery Room Air Room Air Progress Progress Note : Progress Note Advised that since the injury was on Sunday and it is an area of avulsed skin there would not be anything to try and repair closed. We will clean his foot and apply a clean dressing. Encouraged to keep the wound clean with soap and water and apply triple antibiotic or antibiotic ointment 2-3 times a day with a padded dressing. Will send a prescription for antibiotic to try and help prevent infection. He is currently taking ibuprofen and tramadol from a dentist for a root canal. He was given information for the [facility] clinic about contacting them for their wound clinic. Encouraged to keep the wound and foot clean and avoid having a dirty dressing or dirt on the wound. Departure Impression Primary Impression: Avulsion of skin of right foot Qualified Codes: S91.301A - Unspecified open wound, right foot, initial encounter Disposition: 01 HOME, SELF-CARE Condition: Stable Departure-Patient Inst. Decision time for Depature: 17:36 Referrals: MANISH LYLES APRN (PCP) Primary Care Physician [facility] (Family) Primary Care Physician Patient Instructions: SKIN AVULSION Add. Discharge Instructions: Keep the wound clean with soap and water. May apply triple antibiotic or Neosporin or bacitracin 2-3 times a day as needed to help prevent infection. Try to keep the wound covered with padded gauze. You could try calling the [facility] at [phone] and ask about getting in with the wound care clinic. If they do need a referral from the [facility] they should be able to call and contact them for that. All discharge instructions reviewed with patient and/or family. Voiced unde rstanding. Scripts Cephalexin (Cephalexin) 500 Mg Capsule 500 MG PO TID for skin avulsion for 7 Days, #21 CAP 0 Refills Prov: LUCY PATEL MD 10/02/22 LUCY PATEL MD Oct 02, 2022 17:38
[2022-10-02 17:49] VITALS: BP 102/66
== END 2022-10-02 17:51 | disposition home or self-care (01) ==
LOC: EDUNIT# 16:58 → ER FS 17:00
DX: S91.301A Unspecified open wound, right foot, initial encounter (principal); Z28.310 Unvaccinated for COVID-19; W18.40XA Slipping, tripping and stumbling without falling, unspecified, initial encounter; W22.8XXA Striking against or struck by other objects, initial encounter